=== PATIENT | female | born 1975 | race Caucasian/White ===

== ENCOUNTER 2022-09-26 07:55 | Day surgery (SDC) | payer MEDICARE, BC ==
[2022-09-26] MEDS ORDERED: Lactated Ringers 1,000 ML IV SCH (08:00)
[2022-09-26] MEDS ORDERED: fentaNYL 100 MCG/2 ML SDV IVPUSH PRN (08:19)
[2022-09-26] MEDS ORDERED: Ondansetron 4 MG/2 ML SDV IVPUSH PRN (08:19)
[2022-09-26] MEDS ORDERED: Propofol 200 MG/20 ML SDV ONE ×3 (09:28→09:55)
[2022-09-26] MEDS ORDERED: Lidocaine 1% 6 ML ONE (09:29)
[2022-09-26 10:31] VITALS: BP 101/54; PULSE 76
== END 2022-09-26 10:53 | disposition home or self-care (01) ==
LOC: JD.SDS 07:55
PROVIDERS: ATTEND Surgery
DX: Z12.11 Encounter for screening for malignant neoplasm of colon (principal); Q43.8 Other specified congenital malformations of intestine; F41.9 Anxiety disorder, unspecified; M19.90 Unspecified osteoarthritis, unspecified site; J45.909 Unspecified asthma, uncomplicated; K21.9 Gastro-esophageal reflux disease without esophagitis; E78.00 Pure hypercholesterolemia, unspecified; F32.A Depression, unspecified; K58.9 Irritable bowel syndrome, unspecified; M79.10 Myalgia, unspecified site; G43.909 Migraine, unspecified, not intractable, without status migrainosus; Z86.010 Personal history of colon polyps; Z88.5 Allergy status to narcotic agent; Z91.040 Latex allergy status; Z79.899 Other long term (current) drug therapy; Z88.8 Allergy status to other drugs, medicaments and biological substances; Z98.890 Other specified postprocedural states; Z87.891 Personal history of nicotine dependence; Z88.6 Allergy status to analgesic agent; Z90.49 Acquired absence of other specified parts of digestive tract
CPT/HCPCS: 45378; J2704; J7120; J3490

== ENCOUNTER 2022-11-06 10:35 | Emergency (ER) | payer MEDICARE, BC ==
[2022-11-06] MEDS ORDERED: Ondansetron 4 MG/2 ML SDV IVPUSH ONE (11:07)
[2022-11-06] MEDS ORDERED: Sodium Chloride 0.9% 10 ML Syringe FLUSH PRN (11:07)
[2022-11-06] MEDS ORDERED: Sodium Chloride 0.9% 1,000 ML IV SCH ×2 (11:15→12:30)
[2022-11-06] MEDS ORDERED: HYDROmorphone 0.5 MG/0.5 ML Syringe IVPUSH ONE (12:20)
[2022-11-06] MEDS ORDERED: Levofloxacin/Dextrose 5%-Water 500 MG in Premix Bag 1 BAG IV ONE (12:21)
[2022-11-06 15:32] VITALS: BP 108/69; PULSE 75
== END 2022-11-06 15:10 | disposition home or self-care (01) ==
LOC: JD.ED 10:35
DX: R07.89 Other chest pain (principal); R10.9 Unspecified abdominal pain; R11.2 Nausea with vomiting, unspecified; R19.7 Diarrhea, unspecified; J44.9 Chronic obstructive pulmonary disease, unspecified; K21.9 Gastro-esophageal reflux disease without esophagitis; M19.90 Unspecified osteoarthritis, unspecified site; Z88.6 Allergy status to analgesic agent; Z88.5 Allergy status to narcotic agent; Z88.1 Allergy status to other antibiotic agents; Z79.899 Other long term (current) drug therapy; Z87.891 Personal history of nicotine dependence
CPT/HCPCS: 36415; 80053; 85025; 93005; 96361; 96365; 96375; 99285; J1170; J1956; J2405; J3490; J7030; 93010; 99284

== ENCOUNTER 2023-07-19 21:59 | Emergency (ER) | payer MEDICARE, BC ==
[2023-07-19] MEDS ORDERED: Aspirin 81 MG Tab.Chew PO ONE (22:20)
[2023-07-19] MEDS ORDERED: Lactated Ringers 1,000 ML IV ONE (22:47)
[2023-07-19] MEDS ORDERED: Ondansetron 4 MG/2 ML SDV IVPUSH ONE ×2 (22:47→23:59)
[2023-07-19 23:05] LABS: BASOPHILS PERCENT AUTO 0.3 % (0.0-1.0); EOSINOPHILS ABSOLUTE AUTO 0.1 K/mm3 (0.0-0.4); EOSINOPHILS PERCENT AUTO 1.5 % (0.0-6.0); IMMATURE GRAN ABSOLUTE AUTO 0.02 K/mm3 (0.00-0.05); IMMATURE GRAN PERCENT AUTO 0.3 % (0.0-0.4); LYMPHOCYTES ABSOLUTE AUTO 2.4 K/mm3 (1.0-4.8); LYMPHOCYTES PERCENT AUTO 34.3 % (24.0-44.0); MEAN CORPUSCULAR HEMOGLOBIN 32.3 pg (28.0-32.0); MEAN CORPUSCULAR VOLUME 92.4 fl (83.0-99.0); MEAN PLATELET VOLUME 10.3 fl (9.4-12.3); MONOCYTES ABSOLUTE AUTO 0.4 K/mm3 (0.0-0.8); MONOCYTES PERCENT AUTO 6.3 % (0.0-8.0); NEUTROPHILS PERCENT AUTO 57.3 % (41.0-71.0); PLATELET COUNT,PLT 221 K/mm3 (150-400); RED BLOOD CELL COUNT 4.33 M/mm3 (4.10-5.30); WHITE BLOOD CELL COUNT,WBC 6.88 K/mm3 (3.9-11.3)
[2023-07-19 23:18] LABS: A/G RATIO 1.2 (1-2); ANION GAP 17.9 (5-15); BUN/CREATININE RATIO 7.1 (14-18); CALCIUM 9.1 mg/dL (8.5-10.1); CREATININE 0.7 mg/dL (0.55-1.02); EST CRCL DRUG DOSING (CG) 76.89 mL/min; POTASSIUM,K 2.9 mEq/L (3.5-5.1); PROTEIN TOTAL,TP 7.3 g/dl (6.4-8.2)
[2023-07-19 23:30] LABS: CORONAVIRUS COVID-19 NAA NEGATIVE (NEGATIVE); INFLUENZA A NAA NEGATIVE (NEGATIVE)
[2023-07-19] MEDS ORDERED: Potassium Chloride 10 MEQ in Premix Bag 1 BAG IV SCH (23:45)
[2023-07-19] MEDS ORDERED: Potassium Chloride 20 MEQ Tab.ER PO ONE (23:59)
[2023-07-20 01:00] VITALS: BP 133/75; PULSE 74
== END 2023-07-20 00:26 | disposition home or self-care (01) ==
LOC: JD.ED 21:59
DX: R11.2 Nausea with vomiting, unspecified (principal); M54.9 Dorsalgia, unspecified; G89.29 Other chronic pain; E87.6 Hypokalemia; J44.9 Chronic obstructive pulmonary disease, unspecified; K21.9 Gastro-esophageal reflux disease without esophagitis; Z79.899 Other long term (current) drug therapy; Z88.5 Allergy status to narcotic agent; Z88.8 Allergy status to other drugs, medicaments and biological substances; Z20.822 Contact with and (suspected) exposure to COVID-19
CPT/HCPCS: 0240U; 36415; 71045; 80053; 83690; 83735; 84484; 85025; 93005; 96361; 96374; 96376; 99285; A9270; J2405; J7120; 93010; 99284

== ENCOUNTER 2023-09-25 06:55 | Day surgery (SDC) | payer MEDICARE, BC ==
[~2023-09-25 06:55] MED LIST: Dexamethasone 4 MG/ML 5 ML MDV ONE; Ketorolac 30 MG/ML SDV ONE; Lidocaine 1% 4 ML ONE; Midazolam 1 MG/ML 2 ML SDV ONE; Ondansetron 4 MG/2 ML SDV ONE; Propofol 200 MG/20 ML SDV ONE; Rocuronium 50 MG/5 ML Vial ONE; Sodium Chloride 0.9% 10 ML Syringe FLUSH PRN; Sodium Chloride 0.9% 10 ML Syringe FLUSH SCH; ceFAZolin 2 GM Vial ONE; fentaNYL 250 MCG/5 ML SDV ONE
[2023-09-25] MEDS: Lactated Ringers 1,000 ML IV SCH (07:15)
[2023-09-25] MEDS ORDERED: dexmedeTOMIDine HCl 200 MCG/2 ML SDV ONE (07:37)
[2023-09-25] MEDS ORDERED: Neostigmine Methylsulfate 10 MG/10 ML MDV ONE (07:54)
[2023-09-25] MEDS: Bupivacaine 0.5% 30 ML SDV ONE (08:49)
[2023-09-25] MEDS: Albuterol 0.083% 2.5 MG/3 ML Neb Soln ONE (09:25)
[2023-09-25] MEDS ORDERED: Ondansetron 4 MG/2 ML SDV IVPUSH PRN (09:54)
[2023-09-25] MEDS ORDERED: fentaNYL 100 MCG/2 ML SDV IVPUSH PRN (09:54)
[2023-09-25] MEDS ORDERED: HYDROmorphone 0.5 MG/0.5 ML Syringe IVPUSH PRN (09:54)
[2023-09-25] MEDS ORDERED: HYDROmorphone 0.5 MG/0.5 ML Syringe IVPUSH ONE (10:14)
[2023-09-25] MEDS: HYDROmorphone 0.5 MG/0.5 ML Syringe ONE (10:18)
[2023-09-25] MEDS: fentaNYL 100 MCG/2 ML SDV ONE (10:19)
[2023-09-25] MEDS: HYDROmorphone 2 MG Tab PO PRN (12:02)
[2023-09-25] MEDS: Promethazine 25 MG Tab PO PRN (12:02)
[2023-09-25 14:11] VITALS: BP 123/81; PULSE 68
== END 2023-09-25 14:00 | disposition home or self-care (01) ==
LOC: JD.SDS 06:55
PROVIDERS: ATTEND Obstetrics & Gynecology
DX: N83.12 Corpus luteum cyst of left ovary (principal); N83.11 Corpus luteum cyst of right ovary; N73.6 Female pelvic peritoneal adhesions (postinfective); N83.02 Follicular cyst of left ovary; N83.01 Follicular cyst of right ovary; F41.9 Anxiety disorder, unspecified; J44.9 Chronic obstructive pulmonary disease, unspecified; F32.A Depression, unspecified; K21.9 Gastro-esophageal reflux disease without esophagitis; E78.00 Pure hypercholesterolemia, unspecified; Z87.891 Personal history of nicotine dependence; Z79.899 Other long term (current) drug therapy; Z88.5 Allergy status to narcotic agent; Z88.8 Allergy status to other drugs, medicaments and biological substances; Z91.048 Other nonmedicinal substance allergy status; Z91.040 Latex allergy status
CPT/HCPCS: 58661; A9270; J0665; J0690; J1100; J1170; J2250; J2405; J2704; J2710; J3010; J7030; J7120; J8597; 00840; J1885; J3490; J7620-GY

== ENCOUNTER 2023-09-28 11:14 | Emergency (ER) | payer MEDICARE, BC ==
[2023-09-28 11:58] LABS: BASOPHILS PERCENT AUTO 0.3 % (0.0-1.0); EOSINOPHILS ABSOLUTE AUTO 0.3 K/mm3 (0.0-0.4); EOSINOPHILS PERCENT AUTO 3.1 % (0.0-6.0); HEMATOCRIT 46.1 % (37.0-47.0); HEMOGLOBIN 15.9 gm/dl (12.0-16.0); IMMATURE GRAN ABSOLUTE AUTO 0.03 K/mm3 (0.00-0.05); IMMATURE GRAN PERCENT AUTO 0.3 % (0.0-0.4); LYMPHOCYTES ABSOLUTE AUTO 1.1 K/mm3 (1.0-4.8); LYMPHOCYTES PERCENT AUTO 12.8 % (24.0-44.0); MEAN CORPUSCULAR HEMOGLOBIN 31.9 pg (28.0-32.0); MEAN CORPUSCULAR HGB CONC 34.5 g/dl (32.0-36.0); MEAN CORPUSCULAR VOLUME 92.4 fl (83.0-99.0); MEAN PLATELET VOLUME 9.7 fl (9.4-12.3); MONOCYTES ABSOLUTE AUTO 0.6 K/mm3 (0.0-0.8); MONOCYTES PERCENT AUTO 6.4 % (0.0-8.0); NEUTROPHILS ABSOLUTE AUTO 6.8 K/mm3 (1.8-7.7); NEUTROPHILS PERCENT AUTO 77.1 % (41.0-71.0); PLATELET COUNT,PLT 243 K/mm3 (150-400); RED BLOOD CELL COUNT 4.99 M/mm3 (4.10-5.30); WHITE BLOOD CELL COUNT,WBC 8.85 K/mm3 (3.9-11.3)
[2023-09-28] MEDS: Iopamidol 612 MG/ML 100 ML Bottle IVPUSH ONE (12:02)
[2023-09-28] MEDS ORDERED: Prochlorperazine 5 MG in Sodium Chloride 0.9% 50 ML IV ONE (12:14)
[2023-09-28] MEDS: Prochlorperazine 10 MG/2 ML SDV IVPUSH ONE (12:20)
[2023-09-28 12:25] LABS: A/G RATIO 1.1 (1-2); ALBUMIN 4.2 g/dl (3.4-5.0); ANION GAP 17.2 (5-15); BILIRUBIN TOTAL 1.1 mg/dL (0.2-1.0); BUN/CREATININE RATIO 12.5 (14-18); CALCIUM 9.2 mg/dL (8.5-10.1); CREATININE 0.8 mg/dL (0.55-1.02); EST CRCL DRUG DOSING (CG) 67.28 mL/min; POTASSIUM,K 3.2 mEq/L (3.5-5.1)
[2023-09-28 14:07] VITALS: BP 135/97; PULSE 73
== END 2023-09-28 14:05 | disposition home or self-care (01) ==
LOC: JD.ED 11:14
DX: K59.00 Constipation, unspecified (principal); Z90.721 Acquired absence of ovaries, unilateral; K21.9 Gastro-esophageal reflux disease without esophagitis; Z88.6 Allergy status to analgesic agent; Z88.8 Allergy status to other drugs, medicaments and biological substances; Z91.040 Latex allergy status; Z91.048 Other nonmedicinal substance allergy status; Z79.899 Other long term (current) drug therapy; Z90.49 Acquired absence of other specified parts of digestive tract; Z90.710 Acquired absence of both cervix and uterus
CPT/HCPCS: 36415; 74177; 80053; 83690; 85025; 96374; 99285; J0780; Q9967

== ENCOUNTER 2023-10-04 08:45 | Day surgery (SDC) | payer MEDICARE, BC ==
[~2023-10-04 08:45] MED LIST changes: -Dexamethasone 4 MG/ML 5 ML MDV ONE; -Ketorolac 30 MG/ML SDV ONE; -Lidocaine 1% 4 ML ONE; -Midazolam 1 MG/ML 2 ML SDV ONE; -Ondansetron 4 MG/2 ML SDV ONE; -Propofol 200 MG/20 ML SDV ONE; -Rocuronium 50 MG/5 ML Vial ONE; -Sodium Chloride 0.9% 10 ML Syringe FLUSH SCH; -ceFAZolin 2 GM Vial ONE; -fentaNYL 250 MCG/5 ML SDV ONE
[2023-10-04] MEDS ORDERED: Sodium Chloride 0.9% 10 ML Syringe FLUSH SCH (09:00)
[2023-10-04] MEDS: Lactated Ringers 1,000 ML IV SCH (09:05)
[2023-10-04] MEDS ORDERED: Propofol 200 MG/20 ML SDV ONE ×6 (11:59→12:59)
[2023-10-04 15:20] VITALS: BP 112/70; PULSE 78
== END 2023-10-04 15:10 | disposition home or self-care (01) ==
LOC: JD.SDS 08:45
PROVIDERS: ATTEND Student in an Organized Health Care Education/Training Program
DX: K64.8 Other hemorrhoids (principal); K64.4 Residual hemorrhoidal skin tags; K60.2 Anal fissure, unspecified; K62.89 Other specified diseases of anus and rectum; F41.9 Anxiety disorder, unspecified; J44.89 Other specified chronic obstructive pulmonary disease; E78.00 Pure hypercholesterolemia, unspecified; F32.A Depression, unspecified; Z87.891 Personal history of nicotine dependence; Z79.899 Other long term (current) drug therapy; Z88.5 Allergy status to narcotic agent; Z91.048 Other nonmedicinal substance allergy status; Z91.040 Latex allergy status; Z88.8 Allergy status to other drugs, medicaments and biological substances
CPT/HCPCS: 45330; J2704; J7120; 00811

== ENCOUNTER 2024-02-05 15:23 | Emergency (ER) | payer MEDICARE, BC ==
[2024-02-05] MEDS: Sodium Chloride 0.9% 1,000 ML IV ONE (19:45)
[2024-02-05] MEDS: Ondansetron 4 MG/2 ML SDV IVPUSH ONE (19:45)
[2024-02-05] MEDS: Aluminum Hydroxide/Magnesium Hydroxide/Simethicone Susp 30 ML Cup PO ONE (20:56)
[2024-02-05] MEDS: Famotidine 20 MG/2 ML SDV IVPUSH ONE (20:58)
[2024-02-06 00:45] VITALS: BP 132/82; PULSE 86
== END 2024-02-05 21:35 | disposition home or self-care (01) ==
LOC: JD.ED 15:23
DX: K85.90 Acute pancreatitis without necrosis or infection, unspecified (principal); J44.9 Chronic obstructive pulmonary disease, unspecified; E78.00 Pure hypercholesterolemia, unspecified; Z88.5 Allergy status to narcotic agent; Z88.8 Allergy status to other drugs, medicaments and biological substances; Z91.048 Other nonmedicinal substance allergy status; Z90.49 Acquired absence of other specified parts of digestive tract; Z90.710 Acquired absence of both cervix and uterus
CPT/HCPCS: 96361; 96374; 96375; 99283-25; 99284; A9270-GY; J2405; J3490; J7030

== ENCOUNTER 2024-03-18 06:45 | Day surgery (SDC) | payer MEDICARE, BC ==
[~2024-03-18 06:45] MED LIST changes: +Midazolam 1 MG/ML 2 ML SDV ONE; +Propofol 200 MG/20 ML SDV ONE; +Sodium Chloride 0.9% 10 ML Syringe FLUSH SCH
[2024-03-18] MEDS: Lactated Ringers 1,000 ML IV SCH (07:15)
[2024-03-18] MEDS ORDERED: Lidocaine 1% 4 ML ONE (07:21)
[2024-03-18] MEDS ORDERED: Lidocaine 1% PF 2 ML SDV ONE ×2 (07:30)
[2024-03-18] MEDS ORDERED: Lidocaine 1% 2 ML ONE (07:34)
[2024-03-18] MEDS ORDERED: Ondansetron 4 MG/2 ML SDV ONE (07:34)
[2024-03-18 09:00] VITALS: BP 130/86; PULSE 83
== END 2024-03-18 08:58 | disposition home or self-care (01) ==
LOC: JD.SDS 06:45
PROVIDERS: ATTEND Surgery
DX: Z12.11 Encounter for screening for malignant neoplasm of colon (principal); D12.2 Benign neoplasm of ascending colon; K21.9 Gastro-esophageal reflux disease without esophagitis; F41.9 Anxiety disorder, unspecified; J44.9 Chronic obstructive pulmonary disease, unspecified; E78.00 Pure hypercholesterolemia, unspecified; Z86.010 Personal history of colon polyps; Z79.899 Other long term (current) drug therapy; Z91.040 Latex allergy status; Z91.048 Other nonmedicinal substance allergy status; Z88.5 Allergy status to narcotic agent
CPT/HCPCS: 43239; 45385; 88305; J2250; J2405; J2704; J7120; 00813; 45380; J3490

== ENCOUNTER 2024-05-13 08:01 | Observation (INO) | payer MEDICARE, BC ==
[~2024-05-13 08:01] MED LIST changes: -Midazolam 1 MG/ML 2 ML SDV ONE; -Propofol 200 MG/20 ML SDV ONE; -Sodium Chloride 0.9% 10 ML Syringe FLUSH SCH
[2024-05-13] MEDS ORDERED: ceFAZolin 2 GM Vial ONE (08:26)
[2024-05-13] MEDS ORDERED: Metoclopramide 10 MG/2 ML SDV ONE (08:26)
[2024-05-13] MEDS ORDERED: Succinylcholine 200 MG/10 ML MDV ONE (08:26)
[2024-05-13] MEDS ORDERED: Ketorolac 30 MG/ML SDV ONE (08:26)
[2024-05-13] MEDS ORDERED: dexmedeTOMIDine HCl 200 MCG/2 ML SDV ONE (08:26)
[2024-05-13] MEDS ORDERED: Dexamethasone 4 MG/ML 5 ML MDV ONE (08:26)
[2024-05-13] MEDS ORDERED: Rocuronium 50 MG/5 ML Vial ONE ×2 (08:26→10:01)
[2024-05-13] MEDS ORDERED: Ondansetron 4 MG/2 ML SDV ONE ×2 (08:26→09:19)
[2024-05-13] MEDS ORDERED: Lidocaine 2% 5 ML SDV ONE (08:26)
[2024-05-13] MEDS ORDERED: Propofol 200 MG/20 ML SDV ONE (08:27)
[2024-05-13] MEDS ORDERED: Midazolam 1 MG/ML 2 ML SDV ONE (08:27)
[2024-05-13] MEDS ORDERED: fentaNYL 100 MCG/2 ML SDV ONE (08:27)
[2024-05-13] MEDS: Lactated Ringers 1,000 ML IV SCH ×2 (08:35→14:30)
[2024-05-13] MEDS ORDERED: HYDROmorphone 0.5 MG/0.5 ML Syringe ONE (09:22)
[2024-05-13] MEDS: Acetaminophen 325 MG Tab PO ONE (09:26)
[2024-05-13] MEDS ORDERED: Famotidine 20 MG/2 ML SDV ONE (09:27)
[2024-05-13] MEDS ORDERED: Neostigmine Methylsulfate 10 MG/10 ML MDV ONE (09:33)
[2024-05-13] MEDS ORDERED: Lactated Ringers 1,000 ML ONE (09:52)
[2024-05-13] MEDS: Bupivacaine 0.5% 30 ML SDV ONE (10:10)
[2024-05-13] MEDS: EPINEPHrine 1 MG/ML SDV ONE (10:10)
[2024-05-13] MEDS ORDERED: fentaNYL 100 MCG/2 ML SDV IVPUSH PRN (11:12)
[2024-05-13] MEDS ORDERED: Albuterol/Ipratropium 3.0-0.5 MG/3 ML Neb Soln INH PRN (11:42)
[2024-05-13] MEDS ORDERED: Phenol 1.4% Oral Spray 177 ML Bottle MUCMEM PRN (11:44)
[2024-05-13] MEDS: HYDROmorphone 0.5 MG/0.5 ML Syringe IVPUSH PRN ×2 (12:01→17:00)
[2024-05-13] MEDS ORDERED: HYDROmorphone 0.5 MG/0.5 ML Syringe IVPUSH PRN (12:29)
[2024-05-13] MEDS: Sodium Chloride 0.9% 10 ML Syringe FLUSH SCH (13:16)
[2024-05-13] MEDS: Famotidine 20 MG/2 ML SDV IVPUSH ONE (13:17)
[2024-05-13] MEDS: Acetaminophen 325 MG Tab PO SCH (13:35)
[2024-05-13] MEDS: Ondansetron 4 MG/2 ML SDV IVPUSH PRN (13:36)
[2024-05-13] MEDS: Promethazine 25 MG Tab PO PRN (13:55)
[2024-05-13] MEDS: Ketorolac 15 MG/ML SDV IVPUSH SCH (14:00)
[2024-05-13] MEDS: Scopalamine 1mg/3day Transdermal Patch TOP ONE (15:07)
[2024-05-13] MEDS: Ondansetron 4 MG Tab.DIS PO PRN (17:35)
[2024-05-13] MEDS: Cyclobenzaprine 10 MG Tab PO PRN (23:46)
[2024-05-14] MEDS ORDERED: Albuterol/Ipratropium 3.0-0.5 MG/3 ML Neb Soln NEB PRN (01:16)
[2024-05-14] MEDS: diphenhydrAMINE 25 MG Cap PO PRN (02:12)
[2024-05-14] MEDS: Simethicone 80 MG Tab.Chew PO PRN (04:32)
[2024-05-14 05:41] LABS: HEMATOCRIT 39.6 % (37.0-47.0); HEMOGLOBIN 13.4 gm/dl (12.0-16.0); MEAN CORPUSCULAR HEMOGLOBIN 31.8 pg (28.0-32.0); MEAN CORPUSCULAR HGB CONC 33.8 g/dl (32.0-36.0); MEAN CORPUSCULAR VOLUME 93.8 fl (83.0-99.0); MEAN PLATELET VOLUME 10.4 fl (9.4-12.3); PLATELET COUNT,PLT 198 K/mm3 (150-400); RED BLOOD CELL COUNT 4.22 M/mm3 (4.10-5.30); WHITE BLOOD CELL COUNT,WBC 9.85 K/mm3 (3.9-11.3)
[2024-05-14 05:43] LABS: CREATININE 0.6 mg/dL (0.55-1.02); EST CRCL DRUG DOSING (CG) 89.7 mL/min
[2024-05-14] MEDS: Albuterol 6.7 GM Inhaler INH SCH (08:13)
[2024-05-14] MEDS ORDERED: Sodium Chloride 0.9% 10 ML Syringe FLUSH PRN (08:26)
[2024-05-14] MEDS: Enoxaparin 40 MG/0.4 ML Syringe SUBCUT SCH (08:41)
[2024-05-14] MEDS: Potassium Chloride 20 MEQ Tab.ER PO ONE (08:42)
[2024-05-14] MEDS ORDERED: Non-Formulary Medication 1 Each (Fluticasone/Umeclidin/Vilanter [Trelegy Ellipta 200-62.5- INH SCH (09:00)
[2024-05-14 12:23] VITALS: BP 133/80; PULSE 73
== END 2024-05-14 14:25 | disposition home or self-care (01) ==
LOC: EEVIPCON 08:01 → JD.MS 08:01 → INTOOBSV 08:01 → EEVIPCON 08:01 → JD.MS 14:43
PROVIDERS: ADMIT Surgery; ATTEND Surgery
DX: K44.9 Diaphragmatic hernia without obstruction or gangrene (principal); K21.9 Gastro-esophageal reflux disease without esophagitis
CPT/HCPCS: 36415; 43280; 80048; 85027; 94640; 94760; A9270; J0171; J0330; J0665; J0690; J1100; J1170; J1650; J1885; J2250; J2405; J2704; J2710; J2765; J3010; J3490; J7120; J8597

== ENCOUNTER 2024-08-07 06:52 | Day surgery (SDC) | payer MEDICARE, BC ==
[~2024-08-07 06:52] MED LIST changes: +Lactated Ringers 1,000 ML IV SCH; +Propofol 200 MG/20 ML SDV ONE; +Sodium Chloride 0.9% 10 ML Syringe FLUSH SCH
[2024-08-07] MEDS: Lactated Ringers 1,000 ML IV SCH (07:05)
[2024-08-07 08:22] VITALS: BP 112/74; PULSE 74
== END 2024-08-07 08:00 | disposition home or self-care (01) ==
LOC: JD.SDS 06:52
PROVIDERS: ATTEND Surgery
DX: R10.13 Epigastric pain (principal); F41.9 Anxiety disorder, unspecified; F32.A Depression, unspecified; J44.9 Chronic obstructive pulmonary disease, unspecified; K21.9 Gastro-esophageal reflux disease without esophagitis; E78.00 Pure hypercholesterolemia, unspecified; Z79.899 Other long term (current) drug therapy; Z91.040 Latex allergy status; Z88.5 Allergy status to narcotic agent; Z88.8 Allergy status to other drugs, medicaments and biological substances
CPT/HCPCS: 43235; J2704; J7120; 00731

== ENCOUNTER 2024-10-18 09:18 | Emergency (ER) | payer BC, MEDICARE ==
[2024-10-18 10:02] LABS: BASOPHILS PERCENT AUTO 0.3 % (0.0-1.0); EOSINOPHILS ABSOLUTE AUTO 0.3 K/mm3 (0.0-0.4); HEMATOCRIT 41.1 % (37.0-47.0); HEMOGLOBIN 13.7 gm/dl (12.0-16.0); IMMATURE GRAN ABSOLUTE AUTO 0.02 K/mm3 (0.00-0.05); IMMATURE GRAN PERCENT AUTO 0.3 % (0.0-0.4); LYMPHOCYTES PERCENT AUTO 32.5 % (24.0-44.0); MEAN CORPUSCULAR HEMOGLOBIN 31.4 pg (28.0-32.0); MEAN CORPUSCULAR HGB CONC 33.3 g/dl (32.0-36.0); MEAN CORPUSCULAR VOLUME 94.1 fl (83.0-99.0); MONOCYTES ABSOLUTE AUTO 0.5 K/mm3 (0.0-0.8); MONOCYTES PERCENT AUTO 7.3 % (0.0-8.0); NEUTROPHILS ABSOLUTE AUTO 3.4 K/mm3 (1.8-7.7); NEUTROPHILS PERCENT AUTO 55.6 % (41.0-71.0); PLATELET COUNT,PLT 215 K/mm3 (150-400); RED BLOOD CELL COUNT 4.37 M/mm3 (4.10-5.30); WHITE BLOOD CELL COUNT,WBC 6.18 K/mm3 (3.9-11.3)
[2024-10-18] MEDS: Aspirin 81 MG Tab.Chew PO ONE (10:15)
[2024-10-18 10:40] LABS: A/G RATIO 1.2 (1-2); ALBUMIN 3.8 g/dl (3.4-5.0); ANION GAP 11.1 (5-15); BILIRUBIN TOTAL 0.4 mg/dL (0.2-1.0); BUN/CREATININE RATIO 14.3 (14-18); CALCIUM 9.2 mg/dL (8.5-10.1); CREATININE 0.7 mg/dL (0.55-1.02); EST CRCL DRUG DOSING (CG) 76.04 mL/min; MAGNESIUM 1.9 mg/dL (1.8-2.4); POTASSIUM,K 4.1 mEq/L (3.5-5.1)
[2024-10-18] MEDS: Sodium Chloride 0.9% 100 ML IV SCH (11:46)
[2024-10-18] MEDS: Iopamidol 755 Mg/ML 100 ML Bottle IVPUSH ONE (11:46)
[2024-10-18] MEDS: Sodium Chloride 0.9% 10 ML Syringe FLUSH PRN (11:47)
[2024-10-18 13:58] VITALS: BP 129/72; PULSE 67
== END 2024-10-18 13:56 | disposition home or self-care (01) ==
LOC: JD.ED 09:18
DX: R07.89 Other chest pain (principal); Z91.040 Latex allergy status; Z88.8 Allergy status to other drugs, medicaments and biological substances; Z79.899 Other long term (current) drug therapy; Z90.49 Acquired absence of other specified parts of digestive tract; Z91.048 Other nonmedicinal substance allergy status; Z90.710 Acquired absence of both cervix and uterus
CPT/HCPCS: 36415; 71045; 71045-26; 71275; 71275-26; 80053; 83735; 84484; 85025; 85379; 93005; 99285; A9270-GY; Q9967

== ENCOUNTER 2025-03-14 09:49 | Emergency (ER) | payer MEDICARE, BC ==
[2025-03-14 10:08] VITALS: BP 135/95; PULSE 67
== END 2025-03-14 11:36 | disposition home or self-care (01) ==
LOC: JD.ED 09:49
DX: K58.0 Irritable bowel syndrome with diarrhea (principal); T50.905A Adverse effect of unspecified drugs, medicaments and biological substances, initial encounter; E78.00 Pure hypercholesterolemia, unspecified; Z88.8 Allergy status to other drugs, medicaments and biological substances; Z91.040 Latex allergy status; Z79.899 Other long term (current) drug therapy; Z90.49 Acquired absence of other specified parts of digestive tract; Z90.710 Acquired absence of both cervix and uterus
CPT/HCPCS: 99283

== ENCOUNTER 2025-03-16 09:12 | Emergency (ER) | payer MEDICARE, BC ==
[2025-03-16] MEDS ORDERED: Naloxone 0.4 MG/ML SDV IVPUSH PRN (09:25)
[2025-03-16 09:35] LABS: BASOPHILS ABSOLUTE AUTO 0.0 K/mm3 (0.0-0.2); BASOPHILS PERCENT AUTO 0.3 % (0.0-1.0); EOSINOPHILS ABSOLUTE AUTO 0.2 K/mm3 (0.0-0.4); EOSINOPHILS PERCENT AUTO 1.8 % (0.0-6.0); IMMATURE GRAN ABSOLUTE AUTO 0.02 K/mm3 (0.00-0.05); IMMATURE GRAN PERCENT AUTO 0.2 % (0.0-0.4); LYMPHOCYTES ABSOLUTE AUTO 2.0 K/mm3 (1.0-4.8); LYMPHOCYTES PERCENT AUTO 22.1 % (24.0-44.0); MEAN PLATELET VOLUME 9.9 fl (9.4-12.3); MONOCYTES ABSOLUTE AUTO 0.7 K/mm3 (0.0-0.8); MONOCYTES PERCENT AUTO 7.4 % (0.0-8.0); NEUTROPHILS ABSOLUTE AUTO 6.0 K/mm3 (1.8-7.7); NEUTROPHILS PERCENT AUTO 68.2 % (41.0-71.0); NRBC ABSOLUTE 0.00 (0.00-0.02); NRBC PERCENT 0.0 % (0.0-0.2); PLATELET COUNT,PLT 255 K/mm3 (150-400); RED BLOOD CELL COUNT 5.34 M/mm3 (4.10-5.30); WHITE BLOOD CELL COUNT,WBC 8.84 K/mm3 (3.9-11.3)
[2025-03-16] MEDS: fentaNYL 100 MCG/2 ML SDV IVPUSH ONE (09:45)
[2025-03-16] MEDS: Ondansetron 4 MG/2 ML SDV IVPUSH ONE (09:45)
[2025-03-16] MEDS: LORazepam 2 MG/ML SDV IVPUSH ONE (09:45)
[2025-03-16 09:49] LABS: INR 1.0
[2025-03-16 09:57] LABS: A/G RATIO 1.1 (1-2); ALANINE AMINOTRANSFERASE,ALT 43.0 U/L (14-59); ASPARTATE AMNIOTRANSFERASE,AST 30.0 U/L (15-37); BILIRUBIN TOTAL 0.8 mg/dL (0.2-1.0); BLOOD UREA NITROGEN,BUN 7.0 mg/dL (7-18); CARBON DIOXIDE,CO2 25.0 mEq/L (21-32); CHLORIDE,CL 97.0 mEq/L (98-107); CREATINE KINASE,CK 97.0 U/L (26-192); CREATININE 0.7 mg/dL (0.55-1.02); EST CRCL DRUG DOSING (CG) 76.04 mL/min; ESTIMATED GFR 105.0 mL/min (>60); GLUCOSE RANDOM 90.0 mg/dL (70-99); POTASSIUM,K 3.2 mEq/L (3.5-5.1); PROTEIN TOTAL,TP 9.3 g/dl (6.4-8.2); SODIUM,NA 139.0 mEq/L (136-145); TROPONIN I HIGH SENSITIVITY 11.0 pg/mL (<=51)
[2025-03-16 10:47] LABS: BUPRENORPHINE SCREEN,URINE NEGATIVE (CUTOFF=10); METHADONE SCREEN, URINE NEGATIVE (CUTOFF=200); METHAMPHETAMINES SCREEN, URINE NEGATIVE (CUTOFF=500); OXYCODONE SCREEN,URINE NEGATIVE (CUT0FF=100); THC SCREEN,URINE 20 NG/ML PRESUMPTIVE POSITIVE (CUTOFF=50)
[2025-03-16 10:51] LABS: AMPHETAMINES SCREEN, URINE NEGATIVE (CUTOFF=500)
[2025-03-16 11:08] VITALS: BP 110/70; PULSE 70
== END 2025-03-16 11:08 | disposition home or self-care (01) ==
LOC: JD.ED 09:12
DX: R07.89 Other chest pain (principal); R10.13 Epigastric pain; E87.6 Hypokalemia; J44.9 Chronic obstructive pulmonary disease, unspecified; I10 Essential (primary) hypertension; E78.00 Pure hypercholesterolemia, unspecified; Z91.048 Other nonmedicinal substance allergy status; Z91.040 Latex allergy status; Z88.8 Allergy status to other drugs, medicaments and biological substances; Z88.5 Allergy status to narcotic agent; Z79.51 Long term (current) use of inhaled steroids; Z79.899 Other long term (current) drug therapy; Z90.49 Acquired absence of other specified parts of digestive tract
CPT/HCPCS: 36415; 71045; 80053; 80306; 82550; 83690; 83735; 84484; 85025; 85610; 93005; 96361; 96374; 96375; 99285; J2060; J2405; J2470; J3010; J7030; 93010; 99283

== ENCOUNTER 2025-03-18 07:43 | Emergency (ER) | payer MEDICARE, BC ==
[2025-03-18 07:53] VITALS: PULSE 71
[2025-03-18 08:43] LABS: BASOPHILS ABSOLUTE AUTO 0.0 K/mm3 (0.0-0.2); BASOPHILS PERCENT AUTO 0.3 % (0.0-1.0); EOSINOPHILS ABSOLUTE AUTO 0.2 K/mm3 (0.0-0.4); EOSINOPHILS PERCENT AUTO 2.0 % (0.0-6.0); IMMATURE GRAN ABSOLUTE AUTO 0.02 K/mm3 (0.00-0.05); IMMATURE GRAN PERCENT AUTO 0.3 % (0.0-0.4); LYMPHOCYTES ABSOLUTE AUTO 1.3 K/mm3 (1.0-4.8); LYMPHOCYTES PERCENT AUTO 16.9 % (24.0-44.0); MEAN PLATELET VOLUME 10.1 fl (9.4-12.3); MONOCYTES ABSOLUTE AUTO 0.5 K/mm3 (0.0-0.8); MONOCYTES PERCENT AUTO 6.4 % (0.0-8.0); NEUTROPHILS ABSOLUTE AUTO 5.9 K/mm3 (1.8-7.7); NEUTROPHILS PERCENT AUTO 74.1 % (41.0-71.0); NRBC ABSOLUTE 0.00 (0.00-0.02); NRBC PERCENT 0.0 % (0.0-0.2); PLATELET COUNT,PLT 226 K/mm3 (150-400); RED BLOOD CELL COUNT 4.71 M/mm3 (4.10-5.30); WHITE BLOOD CELL COUNT,WBC 7.94 K/mm3 (3.9-11.3)
[2025-03-18 09:04] LABS: A/G RATIO 1.1 (1-2); ALANINE AMINOTRANSFERASE,ALT 31.0 U/L (14-59); ASPARTATE AMNIOTRANSFERASE,AST 18.0 U/L (15-37); BILIRUBIN TOTAL 0.7 mg/dL (0.2-1.0); BLOOD UREA NITROGEN,BUN 6.0 mg/dL (7-18); CARBON DIOXIDE,CO2 27.0 mEq/L (21-32); CHLORIDE,CL 100.0 mEq/L (98-107); CREATINE KINASE,CK 142.0 U/L (26-192); CREATININE 0.5 mg/dL (0.55-1.02); EST CRCL DRUG DOSING (CG) 135.79 mL/min; ESTIMATED GFR 114.0 mL/min (>60); GLUCOSE RANDOM 77.0 mg/dL (70-99); POTASSIUM,K 3.1 mEq/L (3.5-5.1); PROTEIN TOTAL,TP 7.4 g/dl (6.4-8.2); SODIUM,NA 138.0 mEq/L (136-145); TROPONIN I HIGH SENSITIVITY 11.0 pg/mL (<=51)
[2025-03-18 09:30] LABS: APPEARANCE,URINE CLEAR (Clear); GLUCOSE,URINE NEGATIVE (Negative); OCCULT BLOOD,URINE TRACE-LYSED (Negative)
[2025-03-18] MEDS: droPERidol 2.5 MG/ML SDV IV STA (09:52)
[2025-03-18 09:56] LABS: SQUAMOUS EPITHELIAL CELLS,UR 0-5 /hpf (0-5)
[2025-03-18 12:19] VITALS: BP 139/78
== END 2025-03-18 11:53 | disposition home or self-care (01) ==
LOC: JD.ED 07:43
DX: K58.8 Other irritable bowel syndrome (principal); E87.6 Hypokalemia; F41.9 Anxiety disorder, unspecified; J44.9 Chronic obstructive pulmonary disease, unspecified; Z90.49 Acquired absence of other specified parts of digestive tract; Z90.710 Acquired absence of both cervix and uterus; Z88.5 Allergy status to narcotic agent; Z88.6 Allergy status to analgesic agent; Z88.8 Allergy status to other drugs, medicaments and biological substances; Z91.040 Latex allergy status; Z91.018 Allergy to other foods; Z79.51 Long term (current) use of inhaled steroids; Z79.899 Other long term (current) drug therapy
CPT/HCPCS: 36415; 80053; 81001; 82550; 83690; 83735; 84484; 85025; 87428; 93005; 96365; 96366; 96368; 96375; 99285; J1790; J3475; J3480; J7030; 93010; 99283

== ENCOUNTER 2025-07-10 14:22 | Emergency (ER) | payer MEDICARE, BC ==
[2025-07-10 15:02] LABS: BASOPHILS ABSOLUTE AUTO 0.0 K/mm3 (0.0-0.2); BASOPHILS PERCENT AUTO 0.4 % (0.0-1.0); EOSINOPHILS ABSOLUTE AUTO 0.4 K/mm3 (0.0-0.4); EOSINOPHILS PERCENT AUTO 4.6 % (0.0-6.0); IMMATURE GRAN ABSOLUTE AUTO 0.04 K/mm3 (0.00-0.05); IMMATURE GRAN PERCENT AUTO 0.4 % (0.0-0.4); LYMPHOCYTES ABSOLUTE AUTO 1.8 K/mm3 (1.0-4.8); LYMPHOCYTES PERCENT AUTO 20.2 % (24.0-44.0); MEAN PLATELET VOLUME 10.7 fl (9.4-12.3); MONOCYTES ABSOLUTE AUTO 0.6 K/mm3 (0.0-0.8); MONOCYTES PERCENT AUTO 6.4 % (0.0-8.0); NEUTROPHILS ABSOLUTE AUTO 6.0 K/mm3 (1.8-7.7); NEUTROPHILS PERCENT AUTO 68.0 % (41.0-71.0); NRBC ABSOLUTE 0.00 (0.00-0.02); NRBC PERCENT 0.0 % (0.0-0.2); PLATELET COUNT,PLT 210 K/mm3 (150-400); RED BLOOD CELL COUNT 4.84 M/mm3 (4.10-5.30); WHITE BLOOD CELL COUNT,WBC 8.89 K/mm3 (3.9-11.3)
[2025-07-10 15:27] LABS: A/G RATIO 1.0 (1-2); ALANINE AMINOTRANSFERASE,ALT 13.0 U/L (14-59); ASPARTATE AMNIOTRANSFERASE,AST 16.0 U/L (15-37); BILIRUBIN TOTAL 0.6 mg/dL (0.2-1.0); BLOOD UREA NITROGEN,BUN 6.0 mg/dL (7-18); CARBON DIOXIDE,CO2 26.0 mEq/L (21-32); CHLORIDE,CL 100.0 mEq/L (98-107); CREATININE 0.7 mg/dL (0.55-1.02); EST CRCL DRUG DOSING (CG) 75.2 mL/min; ESTIMATED GFR 105.0 mL/min (>60); GLUCOSE RANDOM 121.0 mg/dL (70-99); POTASSIUM,K 3.0 mEq/L (3.5-5.1); PROTEIN TOTAL,TP 7.5 g/dl (6.4-8.2); SODIUM,NA 139.0 mEq/L (136-145)
[2025-07-10 15:33] LABS: LACTIC ACID 2.3 mmol/L (0.4-2.0)
[2025-07-10] MEDS: Potassium Bicarbonate/Cit Ac 20 MEQ Effervescent Tab PO ONE (16:11)
[2025-07-10 18:35] LABS: APPEARANCE,URINE CLEAR (Clear); GLUCOSE,URINE NEGATIVE (Negative); OCCULT BLOOD,URINE NEGATIVE (Negative)
[2025-07-10 18:44] LABS: BUPRENORPHINE SCREEN,URINE NEGATIVE (CUTOFF=10); METHADONE SCREEN, URINE NEGATIVE (CUTOFF=200); METHAMPHETAMINES SCREEN, URINE NEGATIVE (CUTOFF=500); OXYCODONE SCREEN,URINE NEGATIVE (CUT0FF=100); THC SCREEN,URINE 20 NG/ML PRESUMPTIVE POSITIVE (CUTOFF=50)
[2025-07-10 18:49] LABS: AMPHETAMINES SCREEN, URINE NEGATIVE (CUTOFF=500)
[2025-07-10 19:07] VITALS: BP 147/93; PULSE 81
== END 2025-07-10 18:57 | disposition home or self-care (01) ==
LOC: JD.ED 14:22
DX: E86.0 Dehydration (principal); J44.9 Chronic obstructive pulmonary disease, unspecified; Z90.49 Acquired absence of other specified parts of digestive tract; Z90.710 Acquired absence of both cervix and uterus; Z88.5 Allergy status to narcotic agent; Z88.6 Allergy status to analgesic agent; Z88.8 Allergy status to other drugs, medicaments and biological substances; Z91.040 Latex allergy status; Z79.899 Other long term (current) drug therapy
CPT/HCPCS: 36415; 80053; 80306; 81003; 83605; 83735; 85025; 96365; 96366; 96375; 99284; A9270; J2765; J3480; J7030

== ENCOUNTER 2025-07-18 06:05 | Emergency (ER) | payer MEDICARE, BC ==
[2025-07-18] MEDS ORDERED: Sodium Chloride 0.9% 10 ML Syringe FLUSH PRN (06:31)
[2025-07-18] MEDS: diphenhydrAMINE 50 MG/ML SDV IVPUSH ONE (06:40)
[2025-07-18 06:46] LABS: BASOPHILS ABSOLUTE AUTO 0.0 K/mm3 (0.0-0.2); BASOPHILS PERCENT AUTO 0.3 % (0.0-1.0); EOSINOPHILS ABSOLUTE AUTO 0.3 K/mm3 (0.0-0.4); EOSINOPHILS PERCENT AUTO 2.9 % (0.0-6.0); IMMATURE GRAN ABSOLUTE AUTO 0.03 K/mm3 (0.00-0.05); IMMATURE GRAN PERCENT AUTO 0.3 % (0.0-0.4); LYMPHOCYTES ABSOLUTE AUTO 1.8 K/mm3 (1.0-4.8); LYMPHOCYTES PERCENT AUTO 18.1 % (24.0-44.0); MEAN PLATELET VOLUME 10.6 fl (9.4-12.3); MONOCYTES ABSOLUTE AUTO 0.6 K/mm3 (0.0-0.8); MONOCYTES PERCENT AUTO 5.8 % (0.0-8.0); NEUTROPHILS ABSOLUTE AUTO 7.3 K/mm3 (1.8-7.7); NEUTROPHILS PERCENT AUTO 72.6 % (41.0-71.0); NRBC ABSOLUTE 0.00 (0.00-0.02); NRBC PERCENT 0.0 % (0.0-0.2); PLATELET COUNT,PLT 238 K/mm3 (150-400); RED BLOOD CELL COUNT 4.56 M/mm3 (4.10-5.30); WHITE BLOOD CELL COUNT,WBC 10.00 K/mm3 (3.9-11.3)
[2025-07-18 06:52] LABS: A/G RATIO 0.8 (1-2); ALANINE AMINOTRANSFERASE,ALT 26.0 U/L (14-59); ASPARTATE AMNIOTRANSFERASE,AST 16.0 U/L (15-37); BILIRUBIN TOTAL 0.2 mg/dL (0.2-1.0); BLOOD UREA NITROGEN,BUN 10.0 mg/dL (7-18); CARBON DIOXIDE,CO2 27.0 mEq/L (21-32); CHLORIDE,CL 104.0 mEq/L (98-107); CREATININE 0.7 mg/dL (0.55-1.02); EST CRCL DRUG DOSING (CG) 75.2 mL/min; ESTIMATED GFR 105.0 mL/min (>60); GLUCOSE RANDOM 101.0 mg/dL (70-99); POTASSIUM,K 3.0 mEq/L (3.5-5.1); PROTEIN TOTAL,TP 6.9 g/dl (6.4-8.2); SODIUM,NA 141.0 mEq/L (136-145); TROPONIN I HIGH SENSITIVITY 12.0 pg/mL (<=51)
[2025-07-18 06:59] LABS: APPEARANCE,URINE CLEAR (Clear); GLUCOSE,URINE NEGATIVE (Negative); OCCULT BLOOD,URINE NEGATIVE (Negative)
[2025-07-18] MEDS: Sodium Chloride 0.9% 10 ML Syringe FLUSH PRN (07:24)
[2025-07-18] MEDS: Iopamidol 612 MG/ML 100 ML Bottle IVPUSH ONE (07:24)
[2025-07-18] MEDS: Potassium Chloride 20 MEQ Tab.ER PO ONE (07:35)
[2025-07-18] MEDS ORDERED: Naloxone 0.4 MG/ML SDV IVPUSH PRN (07:50)
[2025-07-18] MEDS: Ondansetron 4 MG/2 ML SDV IVPUSH ONE (08:19)
[2025-07-18] MEDS: droPERidol 2.5 MG/ML SDV IV ONE (09:12)
[2025-07-18] MEDS: Magnesium Sulfat/D5W 1GM/100ML 1 GM in Premix Bag 1 BAG IV ONE (11:14)
[2025-07-18] MEDS: Potassium Bicarbonate/Cit Ac 20 MEQ Effervescent Tab PO ONE (11:51)
[2025-07-18 12:34] VITALS: BP 157/76; PULSE 88
== END 2025-07-18 11:50 | disposition home or self-care (01) ==
LOC: JD.ED 06:05
DX: R10.13 Epigastric pain (principal); E83.42 Hypomagnesemia; E87.6 Hypokalemia; E78.00 Pure hypercholesterolemia, unspecified; J44.9 Chronic obstructive pulmonary disease, unspecified; Z91.048 Other nonmedicinal substance allergy status; Z88.5 Allergy status to narcotic agent; Z91.040 Latex allergy status; Z88.8 Allergy status to other drugs, medicaments and biological substances; Z79.899 Other long term (current) drug therapy
CPT/HCPCS: 36415; 72125; 74177; 76705; 80053; 81003; 83690; 83735; 84484; 85025; 87428; 93005; 96361; 96365; 96366; 96375; 99284; A9270; J1200; J1790; J2405; J3480; J7030; Q9967; J1171

== ENCOUNTER 2025-07-26 13:25 | Emergency (ER) | payer MEDICARE, BC ==
[2025-07-26 15:17] VITALS: BP 114/70; PULSE 77
== END 2025-07-26 15:23 | disposition home or self-care (01) ==
LOC: JD.ED 13:25
DX: M25.562 Pain in left knee (principal); Z90.49 Acquired absence of other specified parts of digestive tract; Z91.048 Other nonmedicinal substance allergy status; Z88.5 Allergy status to narcotic agent; Z88.8 Allergy status to other drugs, medicaments and biological substances; Z91.040 Latex allergy status; Z79.51 Long term (current) use of inhaled steroids; Z79.899 Other long term (current) drug therapy; Z90.89 Acquired absence of other organs
CPT/HCPCS: 73562-26-LT; 73562-LT; 93971-26-LT; 93971-LT; 99284